=== PATIENT | female | born 1935 | race Caucasian/White ===

== ENCOUNTER 2020-07-03 18:10 | Inpatient (IN) | payer MEDICARE ==
[~2020-07-03 18:10] MED LIST: Iopamidol-370 76% 500 ML 1 ML ONE
[2020-07-03] MEDS ORDERED: Lorazepam 2 MG/ML VIAL ONE (18:51)
[2020-07-03] MEDS ORDERED: Famotidine/PF 20 mg/2ml Vial ONE (18:51)
[2020-07-03] MEDS ORDERED: methylPREDNISolone Sod Succ 40 MG VIAL ONE (18:51)
[2020-07-03] MEDS ORDERED: diphenhydrAMINE 50 MG/ML VIAL ONE (18:51)
[2020-07-03 19:25] LABS: #Eosinphils 0.4 thou/uL (0.0-0.7); #Lymphocytes 0.8 thou/uL (1.20-3.40); #Monocytes 0.3 thou/uL (0.11-0.59); #Neutrophils 11.7 thou/uL (1.40-6.50); %Basophils 0.3 % (0.0-1.0); %Eosinophils 2.7 % (0.0-10.0); %Lymphocytes 5.7 % (21.0-51.0); %Monocytes 2.5 % (0.0-10.0); %Neutrophils 88.7 % (42.0-75.0); Mean Corpuscular HGB CONC 32.2 g/dL (32.0-36.0); Mean Corpuscular Hemoglobin 30.5 pg (27.0-31.0); Mean Corpuscular Volume 94.8 fL (78.0-98.0); Mean Platelet Volume 7.6 fL (7.4-10.4); Platelet Count 219 thou/uL (130-400); RBC Distribution Width 11.4 % (11.5-14.5); Red Blood Cell (RBC) Count 3.59 mill/uL (4.20-5.40); White Blood Cell (WBC) Count 13.2 thou/uL (4.8-10.8)
[2020-07-03 19:31] LABS: PTT 22.2 sec (22.9-36.1); Prothrombin Time 12.7 sec (12.0-14.7)
[2020-07-03 19:33] LABS: INR-International Normal Ratio 0.9
[2020-07-03 19:45] LABS: Acetaminophen Less than 6.0 mcg/mL (10.0-30.0); Alcohol Less than 10 mg/dL (Less than 10); Magnesium 1.7 mg/dL (1.6-2.6); Salicylate Less than 8.0 mg/dL (15.0-30.0)
[2020-07-03 20:22] LABS: Bilirubin Negative (Negative); Blood, Urine Negative (Negative); Clarity Clear (Clear); Glucose, Urine (Dipstick) Normal (Negative); Ketone, Urine Negative (Negative); Leukocyte 250 Leu/uL (Negative); Nitrite Negative (Negative); Protein, Urine (Dipstick) Negative (Neg-Trace); RBC/HPF 0-3 HPF (0-3); Specific Gravity, Urine 1.008 (1.002-1.036); Squamous Epithelial 0-3 HPF (0-3); Urobilinogen Normal mg/dL (Less than 2); WBC/HPF 21-50 HPF (0-3); pH, Urine 7.5 (5.0-9.0)
[2020-07-03 20:23] LABS: Bacteria/HPF 1+ HPF (None Seen)
[2020-07-03 20:27] LABS: Amphetamine Not Detected (NotDetected); Barbiturates Screen Not Detected (NotDetected); Benzodiazepine Screen Not Detected (NotDetected); Cocaine Metabolite Screen Not Detected (NotDetected); Medtox Reader # READER 1; Methadone Not Detected (NotDetected); Methamphetamine Not Detected (NotDetected); Opiate Screen Not Detected (NotDetected); Oxycodone Screen Not Detected (NotDetected); Phencyclidine (PCP) Not Detected (NotDetected); THC/Cannabinoid Screen Not Detected (NotDetected); Tricyclic Screen Not Detected (NotDetected)
[2020-07-03 20:28] LABS: Medtox Control Line Valid? VALID (VALID)
[2020-07-03] MEDS ORDERED: cefTRIAXone\\ROCEPHIN 2 GM VIAL ONE (20:43)
[2020-07-03] MEDS ORDERED: cefTRIAXone\\ROCEPHIN 1 GM VIAL ONE (20:45)
--- NOTE | 2020-07-03 20:45 | CT ---
CT BRAIN 07/03/20 PROVIDED CLINICAL HISTORY: Altered mental status, evidence for stroke. FINDINGS: No comparisons. There is prominence of the lateral ventricular system, out of proportion to the degree of sulcal prom inence. The fourth ventricle is nondilated. There is no evidence for intracranial hemorrhage or mass effect. There is increased density involving the left frontal scalp in the region of the frontal sin us. There is no evidence for skull fracture. IMPRESSION: 1. No evidence for intracranial hemorrhage or mass effect. 2. Dilatation of the lateral ventricles and third ventricle out of proportion to the degree of s ulcal prominence suggesting normal pressure hydrocephalus. 3. Focal area of increased density in the left frontal scalp may reflect scalp contusion. 4. Findings discussed with Dr. Cullen via telephone 6:39 p.m., 07/03/20. Code CR POS: CYNTHIA
--- NOTE | 2020-07-03 20:59 | CT ---
CT ABDOMEN AND PELVIS WITH IV CONTRAST: 07/03/20 PROVIDED CLINICAL HISTORY: Altered mental status and abdominal pain. FINDINGS: The visualized lung bases are free of significant opacity. The liver, spleen, pancreas, kidneys and adrenal glands appear unremarkable. There is no bowel dilatation, inflammatory fat stranding, free fluid, or free air apparent. There is no evidence for appendicitis. The gallbladder is surgically absent. The uterus is not visualized and presumed surgically absent. 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 The osseous structures demonstrate no concerning lytic or blastic lesions. IMPRESSION: No evidence for an acute process. Chronic findings as above. POS: CYNTHIA
--- NOTE | 2020-07-03 22:25 | RAD ---
PORTABLE UPRIGHT FRONTAL CHEST RADIOGRAPH: 07/03/20 COMPARISON: 01/11/07 HISTORY: Altered mental status. FINDINGS: There is no pneumothorax, pleural fluid, focal consolidation, or alveolar edema. Heart and mediastina l contours appear unremarkable. Nonspecific increased interstitial density noted in the perihilar reg ions. IMPRESSION: Perihilar interstitial prominence with no focal consolidation or alveolar edema. POS: KRISTA
[2020-07-03 23:06] LABS: ALT (SGPT) 16 U/L (8-55); AST (SGOT) 24 U/L (5-34); Albumin 3.8 g/dL (3.4-4.8); Alkaline Phosphatase 84 U/L (40-110); Anion Gap 18 mmol/L (10-20); BUN (Urea Nitrogen) 25 mg/dL (9.8-20.1); Bilirubin, Total 0.3 mg/dL (0.2-1.2); CK (CPK) 52 U/L (29-168); Calc. Creatinine Clearance 0 mL/min (70-130); Calcium 8.9 mg/dL (7.8-10.44); Carbon Dioxide 19 mmol/L (23-31); Chloride 108 mmol/L (98-107); Globulin 3.3 g/dL (2.4-3.5); Glucose 99 mg/dL (83-110); Lipase 77 U/L (8-78); Potassium 4.6 mmol/L (3.5-5.1); Protein, Total 7.1 g/dL (6.0-8.3); Sodium 140 mmol/L (136-145)
[2020-07-04] MEDS ORDERED: Acetaminophen 650 MG Suppository PR PRN (00:56)
[2020-07-04] MEDS ORDERED: Ondansetron PF 4 MG/2 ML Vial IVP PRN (00:56)
[2020-07-04] MEDS ORDERED: Calcium Carbonate 500 MG ChewTAB PO PRN (00:56)
[2020-07-04] MEDS ORDERED: Ondansetron ODT 4 MG TAB PO PRN (00:56)
--- NOTE | 2020-07-04 01:00 | PDOC.HHP ---
Hospitalist HPI - History of Present Illness altered mental state History of Present Illness: Case of an 84y/o female with a pmhx of atrial fibrillaton, hld, hx of dilated intracranial ventricles since and htn who comes to hospital due to altered mental state. apparently patient was on her usual state sof health until today when approximate this afternoon she began to have some global weakness and began to seem somewhat agitated according to her daughter. The patient was unable to get out of her chair and EMS was called. When the patient arrived to the emergency department here she is moving all extremities but appeared quite agitated and disoriented. patient was also febrile. She has no complaints. during my evaluation patient seemed to be back to her base and had no recollection of what had happened. Hospitalist ROS - Review of Systems All other systems reviewed; all pertinent +/- noted in HPI/Subj Hospitalist History - Past Surgical History Past Surgical History: reports: Cholecystectomy, Hysterectomy - Family History Family History: reports: no pertinent history - Social History Smoking Status: Never smoker Alcohol: reports: None Drugs: reports: none Living Situation: With Family - Exam General Appearance: NAD, awake alert Eye: PERRL, anicteric sclera ENT: normocephalic atraumatic, no oropharyngeal lesions Neck: supple, symmetric, no JVD Heart: RRR, no murmur, no gallops Respiratory: CTAB, no wheezes, no rales Gastrointestinal: soft, non-tender, non-distended Extremities: no cyanosis, no clubbing, no edema Skin: normal turgor, no lesions, no rashes Neurological: cranial nerve grossly intact, normal sensation to touch, no weakness Musculoskeletal: normal tone, normal strength, no muscle wasting Psychiatric: normal affect, normal behavior, A&O x 3 Hospitalist Results - Labs Result Diagrams: 07/03/20 19:13 07/03/20 19:13 Lab results: WBC 13.2 thou/uL (4.8-10.8) H 07/03/20 19:13 Hgb 11.0 g/dL (12.0-16.0) L 07/03/20 19:13 Hct 34.1 % (36.0-47.0) L 07/03/20 19:13 MCV 94.8 fL (78.0-98.0) 07/03/20 19:13 Plt Count 219 thou/uL (130-400) 07/03/20 19:13 Neutrophils % 88.7 % (42.0-75.0) H 07/03/20 19:13 Sodium 140 mmol/L (136-145) 07/03/20 19:13 Potassium 4.6 mmol/L (3.5-5.1) 07/03/20 19:13 Chloride 108 mmol/L (98-107) H 07/03/20 19:13 Carbon Dioxide 19 mmol/L (23-31) L 07/03/20 19:13 BUN 25 mg/dL (9.8-20.1) H 07/03/20 19:13 Creatinine 1.72 mg/dL (0.6-1.1) H 07/03/20 19:13 Glucose 99 mg/dL (83-110) 07/03/20 19:13 Lactic Acid 1.7 mmol/L (0.5-2.2) 07/03/20 19:13 Calcium 8.9 mg/dL (7.8-10.44) 07/03/20 19:13 Total Bilirubin 0.3 mg/dL (0.2-1.2) 07/03/20 19:13 AST 24 U/L (5-34) 07/03/20 19:13 ALT 16 U/L (8-55) 07/03/20 19:13 Alkaline Phosphatase 84 U/L (40-110) 07/03/20 19:13 Creatine Kinase 52 U/L (29-168) 07/03/20 19:13 Troponin I 0.017 ng/mL (< 0.028) 07/03/20 19:13 Serum Total Protein 7.1 g/dL (6.0-8.3) 07/03/20 19:13 Albumin 3.8 g/dL (3.4-4.8) 07/03/20 19:13 Lipase 77 U/L (8-78) 07/03/20 19:13 Urine Ketones Negative mg/dL (Negative) 07/03/20 Unknown Urine Blood Negative (Negative) 07/03/20 Unknown Urine Nitrite Negative (Negative) 07/03/20 Unknown Ur Leukocyte Esterase 250 Felix/uL (Negative) A 07/03/20 Unknown Urine RBC 0-3 HPF (0-3) 07/03/20 Unknown Urine WBC 21-50 HPF (0-3) A 07/03/20 Unknown Ur Squamous Epith Cells 0-3 HPF (0-3) 07/03/20 Unknown Urine Bacteria 1+ HPF (None Seen) A 07/03/20 Unknown Hospitalist H&P A/P - Problem (1) Sepsis Code(s): A41.9 - SEPSIS, UNSPECIFIED ORGANISM Status: Acute (2) UTI (urinary tract infection) Status: Acute (3) JESS (acute kidney injury) Code(s): N17.9 - ACUTE KIDNEY FAILURE, UNSPECIFIED Status: Acute (4) Atrial fibrillation Code(s): I48.91 - UNSPECIFIED ATRIAL FIBRILLATION Status: Acute (5) HTN (hypertension) Code(s): I10 - ESSENTIAL (PRIMARY) HYPERTENSION Status: Acute (6) HLD (hyperlipidemia) Code(s): E78.5 - HYPERLIPIDEMIA, UNSPECIFIED Status: Acute - Plan Plan: Case of an 84y/o female with the stated pmhx who present with sepsis secondary to uti sepsis secondary to uti - leukocytosis + fever + altered mental state + u/a consistent with uti - sepsis bundles started ivfs given, cultures taken and pt started on broad spectrum abx - will start rocephin - margarita [place] - continue ivfs - f/u cultures jess - unclear base, creatinine at 1.7 - will start ivfs - f/u renal function and u/o atrial fibrillation / htn / hld - continue home meds when available
[2020-07-04] MEDS ORDERED: Sodium Chloride 0.9% 1,000 ML IV SCH (01:30)
[2020-07-04] MEDS ORDERED: cefTRIAXone\\ROCEPHIN 1 GM in Sodium Chloride 0.9% 100 ML IVPB SCH (01:30)
[2020-07-04 05:38] LABS: ALT (SGPT) 14 U/L (8-55); AST (SGOT) 22 U/L (5-34); Albumin 3.5 g/dL (3.4-4.8); Alkaline Phosphatase 79 U/L (40-110); Anion Gap 15 mmol/L (10-20); BUN (Urea Nitrogen) 23 mg/dL (9.8-20.1); Bilirubin, Total 0.2 mg/dL (0.2-1.2); Calc. Creatinine Clearance 0 mL/min (70-130); Calcium 8.7 mg/dL (7.8-10.44); Carbon Dioxide 21 mmol/L (23-31); Chloride 110 mmol/L (98-107); Globulin 3.2 g/dL (2.4-3.5); Glucose 142 mg/dL (83-110); Potassium 4.5 mmol/L (3.5-5.1); Protein, Total 6.7 g/dL (6.0-8.3); Sodium 141 mmol/L (136-145)
[2020-07-04 05:41] LABS: Hemoglobin 10.2 g/dL (12.0-16.0); Mean Corpuscular HGB CONC 32.8 g/dL (32.0-36.0); Mean Corpuscular Hemoglobin 31.4 pg (27.0-31.0); Mean Corpuscular Volume 95.8 fL (78.0-98.0); Platelet Count 203 thou/uL (130-400); RBC Distribution Width 11.4 % (11.5-14.5); Red Blood Cell (RBC) Count 3.24 mill/uL (4.20-5.40); White Blood Cell (WBC) Count 15.4 thou/uL (4.8-10.8)
[2020-07-04 05:42] LABS: Band 2 % (5-11); Hypochromia SLIGHT = 6-15 cells (100X) (0-5/hpf); Lymphocytes 5 % (21-51); MDiff Complete? YES; Neutrophil 93 % (42-75); Platelet Morphology Comment Appears Adequate
[2020-07-04 05:44] VITALS: BMI 28.8
[2020-07-04] MEDS ORDERED: FLU VACC QS2020-21(65YR UP)/PF 240 MCG/0.7 ML SYRINGE IM ONE (09:15)
--- NOTE | 2020-07-04 09:25 | PDOC.HOSPP ---
- Subjective Encounter Date: 07/04/20 Subjective: Patient was seen and examined in bed. She appears generally well. She denies any cough chest pain or shortness of breath. No significant events overnight - Objective Vital Signs & Weight: Vital Signs (12 hours) Temp Pulse Resp BP Pulse Ox 07/04/20 08:18 97.5 F L 61 16 134/62 94 L 07/04/20 03:55 97.7 F 70 16 116/79 96 07/04/20 00:55 98 07/03/20 23:55 98.0 F 71 14 147/77 H 95 Weight Weight 167 lb 9.6 oz Result Diagrams: 07/04/20 05:08 07/04/20 05:08 EKG Reviewed by me: Yes (Normal sinus rhythm with occasional PVCs and pauses on telemetry.) Hospitalist ROS - Review of Systems All other systems reviewed; all pertinent +/- noted in HPI/Subj - Medication Medications: Active Medications Generic Name Dose Route Start Last Admin Trade Name Freq PRN Reason Stop Dose Admin Sodium Chloride 1,000 mls @ 70 mls/hr 07/04/20 01:30 07/04/20 05:45 Normal Saline 0.9% IV 1,000 mls .[id number] NACHO Administration - Exam General Appearance: awake alert Eye: PERRL, anicteric sclera ENT: normocephalic atraumatic, no oropharyngeal lesions Heart: RRR, no murmur, no gallops, no rubs Respiratory: CTAB, no wheezes, no rales, no ronchi Gastrointestinal: soft, non-tender, non-distended, normal bowel sounds Extremities: no cyanosis, no clubbing, no edema Neurological: cranial nerve grossly intact, no focal deficits Musculoskeletal: normal tone Psychiatric: normal affect, normal behavior, A&O x 3 Hosp A/P - Plan This is an 84-year-old female patient with a history of atrial fibrillation, hypertension hyperlipidemia admitted on account of sepsis with altered mental status. He appears to be back to baseline however having persistent leukocytosis and renal function is improving. Sepsis Received initial treatment currently on Rocephin for UTI Still having mildly worsening leukocytosis with increased from 13.2-15.4 She is however clinically improved We will continue treatment for 1 more day and wait for cultures. UTI Continue Rocephin for now Follow-up on culture results. JESS Baseline unclear however no improvement in creatinine. We will increase fluids from 7200 mils per hour Monitor BMP. Check FENa, No hydronephrosis or nephrolithiasis noted on CT abdomen Nephrology consult if deteriorates any further. Next Hypothyroidism TSH within normal range Continue levothyroxine Atrial fibrillation Not on anticoagulants No A. fib on telemetry Continue monitor.
[2020-07-04] MEDS: Sodium Chloride 0.9% 1,000 ML IV SCH ×2 (09:53→21:03)
--- NOTE | 2020-07-04 11:01 | PQF ---
CLINICAL DOCUMENTATION CLARIFICATION FORM: Dear ARMANI Salmeron Date: 07-04-20 Please exercise your independent, professional judgment in responding to the clarification form. Clinical indicators are provided on the bottom of this form for your review. Please check appropriate box(es): [ ] Encephalopathy: Type: [ x ] Acute [ ] Subacute [ ] Chronic Etiology: [ ] Metabolic [ ] Toxic [ ] Hypoxic [ x ] Septic [ ] In the setting of underlying dementia [ ] Other (please specify) [ ] Transient Alteration of Awareness [ ] Other diagnosis [ ] Unable to determine In addition, please specify: Present on Admission (POA): [ x ] Yes [ ] No [ ] Unable to determine For continuity of documentation, please document condition throughout progress notes and discharge summary. Thank You. To be completed by CDI/Coding staff for physician review: CLINICAL INDICATORS - SIGNS / SYMPTOMS / LABS / RESULTS AND LOCATION IN EMR: ER NOTES: 07-03-20: AMS, SOMEWHAT AGITATED, UNABLE TO GET OUT OF CHAIR ER DX: AMS, NORMAL PRESSURE HYDROCEPHALUS, UTI H&P: 07-03-20: ALTERED MENTAL STATUS, AGITATED AND DISORIENTED, PLAN: SEPSIS, UTI, JESS, A FIB, HTN, HLD RISK FACTORS / RESULTS AND LOCATION IN EMR: H&P: 07-03-20: ALTERED MENTAL STATUS, AGITATED AND DISORIENTED, PLAN: SEPSIS, UTI, JESS, A FIB, HTN, HLD TREATMENTS / RESULTS AND LOCATION IN EMR: H&P: 07-03-20: SEPSIS BUNDLES STARTED IVFS GIVEN, CULTURES TAKEN AND PT STARTED ON BROAD SPECTRUM ABX, START ROCEPHIN, CONTINUE IVFS, F/U CULTURE CDS Signature: Yuliya Maria Phone #: [phone] Date/Time: 07-04-20 This is a permanent part of the Medical Record [facility]
[2020-07-04] MEDS ORDERED: cefTRIAXone\\ROCEPHIN 2 GM in Sodium Chloride 0.9% 100 ML IVPB SCH (22:00)
[2020-07-05 05:41] LABS: Hemoglobin 11.1 g/dL (12.0-16.0); Mean Corpuscular HGB CONC 31.4 g/dL (32.0-36.0); Mean Corpuscular Hemoglobin 30.2 pg (27.0-31.0); Mean Corpuscular Volume 96.3 fL (78.0-98.0); Mean Platelet Volume 7.9 fL (7.4-10.4); Platelet Count 227 thou/uL (130-400); RBC Distribution Width 11.8 % (11.5-14.5); Red Blood Cell (RBC) Count 3.68 mill/uL (4.20-5.40); White Blood Cell (WBC) Count 21.6 thou/uL (4.8-10.8)
[2020-07-05 05:43] LABS: Anion Gap 16 mmol/L (10-20); BUN (Urea Nitrogen) 23 mg/dL (9.8-20.1); Calc. Creatinine Clearance 31 mL/min (70-130); Calcium 8.8 mg/dL (7.8-10.44); Carbon Dioxide 18 mmol/L (23-31); Chloride 112 mmol/L (98-107); Glucose 116 mg/dL (83-110); Potassium 3.8 mmol/L (3.5-5.1); Sodium 142 mmol/L (136-145)
[2020-07-05 06:42] LABS: Band 10 % (5-11); Eosinophils 1 % (0-10); Lymphocytes 10 % (21-51); MDiff Complete? YES; Monocytes 9 % (0-10); Neutrophil 70 % (42-75)
[2020-07-05] MEDS ORDERED: Doxycycline 100 MG in Syringe 0 ML IVPB SCH (09:00)
[2020-07-05] MEDS ORDERED: Non-Formulary Item 1 EACH (Levothyroxine Sodium [Levothyroxine] 88 MCG Capsule) PO SCH (09:00)
--- NOTE | 2020-07-05 09:07 | RAD ---
RADIOGRAPH CHEST 1 VIEW: DATE: 07/05/2020 TIME: 5:18 AM HISTORY: 84-year-old female with wheezing and dyspnea COMPARISON: 07/03/2020 FINDINGS: There is a new finding of infrahilar right lower lobe infiltrate. Interstitial markings are diffusely prominent. No cardiomegaly or pneumothorax. IMPRESSION: New right lower lobe infiltrate
[2020-07-05] MEDS: Rosuvastatin 10 MG TAB PO SCH (09:28)
[2020-07-05] MEDS: Escitalopram Oxalate 20 mg Tablet PO SCH (09:28)
[2020-07-05] MEDS: Aspirin 81 mg Enteric Coated Tablet PO SCH (09:28)
[2020-07-05] MEDS: Sodium Chloride 0.9% 1,000 ML IV SCH ×3 (09:29→21:31)
[2020-07-05] MEDS: Piperacillin/Tazobactam 4.5 GM in Sodium Chloride 0.9% 100 ML IVPB SCH ×2 (09:29→15:55)
[2020-07-05] MEDS: Acetaminophen 325 MG TAB PO PRN ×2 (16:10→22:57)
--- NOTE | 2020-07-05 16:16 | PDOC.HOSPP ---
- Subjective Encounter Date: 07/05/20 Subjective: Patient was seen and examined in bed. Overnight she had ongoing diarrhea Had a cough and wheezing requiring breathing treatments overnight. She has been slightly confused. Her daughter was in the room with her - Objective Vital Signs & Weight: Vital Signs (12 hours) Temp Pulse Resp BP Pulse Ox 07/05/20 16:00 97.5 F L 79 18 161/77 H 94 L 07/05/20 13:00 98.3 F 67 14 148/72 H 93 L 07/05/20 08:10 99.2 F 82 16 164/94 H 95 07/05/20 05:09 166/63 H Weight Weight 167 lb 9.6 oz I&O: 07/04/20 07/05/20 07/06/20 06:59 06:59 06:59 Intake Total 300 240 Balance 300 240 Result Diagrams: 07/05/20 05:01 07/05/20 05:01 EKG Reviewed by me: Yes (Normal sinus rhythm on telemetry) Hospitalist ROS - Review of Systems All other systems reviewed; all pertinent +/- noted in HPI/Subj - Medication Medications: Active Medications Generic Name Dose Route Start Last Admin Trade Name Freq PRN Reason Stop Dose Admin Acetaminophen 650 mg 07/04/20 00:56 07/05/20 16:10 Acetaminophen 325 Mg Tab PO 650 mg Q4H PRN Administration Headache/Fever/Mild Pain (1-3) Aspirin 81 mg 07/05/20 09:00 07/05/20 09:28 Aspirin 81 Mg Enteric Coated Tablet PO 81 mg DAILY NACHO Administration Escitalopram Oxalate 20 mg 07/05/20 09:00 07/05/20 09:28 Escitalopram Oxalate 20 Mg Tablet PO 20 mg DAILY NACHO Administration Ceftriaxone Sodium 2 gm/ 100 mls @ 200 mls/hr 07/04/20 22:00 07/04/20 21:40 Sodium Chloride IVPB 100 mls 2200 NACHO Administration Sodium Chloride 1,000 mls @ 100 mls/hr 07/04/20 09:30 07/05/20 09:29 Normal Saline 0.9% IV Not Given .Q10H NACHO Piperacillin Sod/Tazobactam 100 mls @ 200 mls/hr 07/05/20 08:00 07/05/20 15:55 Sod 4.5 gm/ Sodium Chloride IVPB 100 mls Q8H NACHO Administration Doxycycline Hyclate 100 mg/ 100 mls @ 100 mls/hr 07/05/20 09:00 07/05/20 09:29 Sodium Chloride IVPB 100 mls Q12HR NACHO Administration Metoprolol Succinate 25 mg 07/05/20 09:00 07/05/20 09:28 Metoprolol Succinate Xl 25 Mg Tab PO 25 mg DAILY NACHO Administration Ondansetron HCl 4 mg 07/04/20 00:56 07/05/20 04:24 Ondansetron Pf 4 Mg/2 Ml Vial IVP 4 mg Q6H PRN Administration Nausea/Vomiting Rosuvastatin Calcium 10 mg 07/05/20 09:00 07/05/20 09:28 Rosuvastatin 10 Mg Tab PO 10 mg DAILY NACHO Administration Sodium Chloride 10 ml 07/04/20 21:00 07/05/20 09:30 Flush - Normal Saline 10 Ml Syringe IVF 10 ml Q12HR NACHO Administration - Exam General Appearance: awake alert Eye: PERRL, anicteric sclera ENT: normocephalic atraumatic Heart: RRR, no murmur, no gallops, no rubs Respiratory: CTAB, wheezes Gastrointestinal: soft, non-tender, non-distended, normal bowel sounds Extremities: no cyanosis, no clubbing, no edema Neurological: cranial nerve grossly intact, no focal deficits Hosp A/P - Plan This is an 84-year-old female patient with a history of atrial fibrillation, hypertension hyperlipidemia admitted on account of sepsis with altered mental status. She had worsening respiratory distress overnight requiring breathing treatments and chest x-ray shows new right-sided infiltrates. We will expand her antibiotics to Zosyn and doxycycline and assess for aspiration. Sepsis Initially treated for UTI however this is likely from pneumonia Leukocytosis is worsening We will expand antibioticsdoxycycline/Zosyn Follow-up on blood cultures Pneumonia Possibly aspiration Cover him doxycycline/Zosyn Follow-up on cultures UTI Initially on Rocephin Continue on antibiotics as above JESS/CKD Likely her baseline Slight improvement in creatinine from 1.73-1.60 No hydronephrosis so nephrolithiasis on CT Monitor BMP. Check FENa, No hydronephrosis or nephrolithiasis noted on CT abdomen Nephrology consult if deteriorates any further. Diarrhea Check C. difficile IV fluids. Loperamide if C. difficile negative Hypothyroidism TSH within normal range Continue levothyroxine Atrial fibrillation Not on anticoagulants No A. fib on telemetry Continue monitor. VT prophylaxisLovenox CODE STATUSfull code
[2020-07-05] MEDS ORDERED: Non-Formulary Item 1 EACH (Quetiapine Fumarate [Seroquel] 50 MG Tablet) PO SCH (21:00)
[2020-07-05] MEDS: Donepezil HCl 10 MG TAB PO SCH (21:32)
[2020-07-06] MEDS: Piperacillin/Tazobactam 4.5 GM in Sodium Chloride 0.9% 100 ML IVPB SCH ×3 (01:47→16:52)
[2020-07-06] MEDS: Sodium Chloride 0.9% 1,000 ML IV SCH ×2 (05:31→15:24)
[2020-07-06] MEDS: Levothyroxine Sodium 88 MCG TAB PO SCH (06:12)
[2020-07-06 08:57] LABS: #Eosinphils 0.3 thou/uL (0.0-0.7); #Lymphocytes 1.7 thou/uL (1.20-3.40); #Monocytes 0.9 thou/uL (0.11-0.59); #Neutrophils 10.5 thou/uL (1.40-6.50); %Basophils 0.4 % (0.0-1.0); %Eosinophils 2.3 % (0.0-10.0); %Lymphocytes 12.4 % (21.0-51.0); %Monocytes 6.5 % (0.0-10.0); %Neutrophils 78.4 % (42.0-75.0); Hemoglobin 10.3 g/dL (12.0-16.0); Mean Corpuscular HGB CONC 32.1 g/dL (32.0-36.0); Mean Corpuscular Hemoglobin 31.2 pg (27.0-31.0); Mean Corpuscular Volume 97.1 fL (78.0-98.0); Mean Platelet Volume 7.8 fL (7.4-10.4); Platelet Count 182 thou/uL (130-400); RBC Distribution Width 11.8 % (11.5-14.5); Red Blood Cell (RBC) Count 3.31 mill/uL (4.20-5.40); White Blood Cell (WBC) Count 13.4 thou/uL (4.8-10.8)
[2020-07-06 09:10] LABS: Anion Gap 14 mmol/L (10-20); BUN (Urea Nitrogen) 18 mg/dL (9.8-20.1); Calc. Creatinine Clearance 31 mL/min (70-130); Calcium 8.5 mg/dL (7.8-10.44); Carbon Dioxide 20 mmol/L (23-31); Chloride 113 mmol/L (98-107); Glucose 93 mg/dL (83-110); Potassium 3.6 mmol/L (3.5-5.1); Sodium 143 mmol/L (136-145)
[2020-07-06] MEDS: Escitalopram Oxalate 20 mg Tablet PO SCH (09:16)
[2020-07-06] MEDS: Aspirin 81 mg Enteric Coated Tablet PO SCH (09:16)
[2020-07-06] MEDS: Rosuvastatin 10 MG TAB PO SCH (09:17)
--- NOTE | 2020-07-06 16:57 | PDOC.HOSPP ---
- Subjective Encounter Date: 07/06/20 Encounter Time: 15:00 Subjective: F/u: pneumonia, encephalopathy Daughter states patient originally had altered mental status. She had global weakness and was agitated with a fever of 101.8. She had not slept all night and so had a bad day two nights ago but today is better. Her breathing has improved. She ambulated with physical therapy with a walker down the pedroza. Her oxygen saturation remained 94% on 2L of oxygen. Heart rate 90's to 114. The patient was getting therapy as an outpatient prior to coming to the hospital and did not think it helped that much so leaning towards going home when she is ready to be discharged Dysphagia -She has a mild cough. The patient is requesting water, however speech had recommended a thickened diet a few days ago. Discussed with daughter that she can continue diet with risks of aspiration - Objective Vital Signs & Weight: Vital Signs (12 hours) Temp Pulse Pulse Pulse Pulse Resp BP 07/06/20 14:55 97 97 107 H 138/74 07/06/20 14:34 64 20 07/06/20 12:40 91 07/06/20 12:18 98.7 F 118 H 20 07/06/20 09:18 66 22 H 07/06/20 08:00 BP BP Pulse Ox Pulse Ox Pulse Ox Pulse Ox 07/06/20 14:55 172/78 H 94 L 98 97 07/06/20 14:34 92 L 07/06/20 12:40 07/06/20 12:18 122/68 94 L 07/06/20 09:18 93 L 07/06/20 08:00 93 L Weight Weight 167 lb 9.6 oz I&O: 07/05/20 07/06/20 07/07/20 06:59 06:59 06:59 Intake Total 300 680 Balance 300 680 Result Diagrams: 07/06/20 08:48 07/06/20 08:48 Hospitalist ROS - Review of Systems Constitutional: denies: fever, chills - Medication Medications: Active Medications Generic Name Dose Route Start Last Admin Trade Name Freq PRN Reason Stop Dose Admin Acetaminophen 650 mg 07/04/20 00:56 07/05/20 22:57 Acetaminophen 325 Mg Tab PO 650 mg Q4H PRN Administration Headache/Fever/Mild Pain (1-3) Albuterol/Ipratropium 3 ml 07/05/20 16:17 07/06/20 09:18 Ipratropium/Albuterol Sulfate 3 Ml Neb NEB 3 ml [id number] PRN Administration SOB &/or Wheezing Albuterol/Ipratropium 3 ml 07/05/20 18:30 07/06/20 14:34 Ipratropium/Albuterol Sulfate 3 Ml Neb NEB 3 ml [id number] NACHO Administration Aspirin 81 mg 07/05/20 09:00 07/06/20 09:16 Aspirin 81 Mg Enteric Coated Tablet PO 81 mg DAILY NACHO Administration Donepezil HCl 10 mg 07/05/20 21:00 07/05/20 21:32 Donepezil Hcl 10 Mg Tab PO 10 mg HS NACHO Administration Escitalopram Oxalate 20 mg 07/05/20 09:00 07/06/20 09:16 Escitalopram Oxalate 20 Mg Tablet PO 20 mg DAILY NACHO Administration Sodium Chloride 1,000 mls @ 100 mls/hr 07/04/20 09:30 07/06/20 15:24 Normal Saline 0.9% IV 1,000 mls .Q10H NACHO Administration Piperacillin Sod/Tazobactam 100 mls @ 200 mls/hr 07/05/20 08:00 07/06/20 16:52 Sod 4.5 gm/ Sodium Chloride IVPB 100 mls Q8H NACHO Administration Doxycycline Hyclate 100 mg/ 100 mls @ 100 mls/hr 07/05/20 09:00 07/06/20 10:06 Sodium Chloride IVPB 100 mls Q12HR NACHO Administration Levothyroxine Sodium 88 mcg 07/06/20 06:00 07/06/20 06:12 Levothyroxine Sodium 88 Mcg Tab PO 88 mcg 0600 NACHO Administration Metoprolol Succinate 25 mg 07/05/20 09:00 07/06/20 09:17 Metoprolol Succinate Xl 25 Mg Tab PO 25 mg DAILY NACHO Administration Ondansetron HCl 4 mg 07/04/20 00:56 07/05/20 04:24 Ondansetron Pf 4 Mg/2 Ml Vial IVP 4 mg Q6H PRN Administration Nausea/Vomiting Quetiapine Fumarate 50 mg 07/05/20 21:00 07/05/20 21:32 Quetiapine Fumarate 25 Mg Tab PO 50 mg HS NACHO Administration Rosuvastatin Calcium 10 mg 07/05/20 09:00 07/06/20 09:17 Rosuvastatin 10 Mg Tab PO 10 mg DAILY NACHO Administration Sodium Chloride 10 ml 07/04/20 21:00 07/06/20 09:19 Flush - Normal Saline 10 Ml Syringe IVF Not Given Q12HR NACHO - Exam General Appearance: NAD, awake alert Eye: PERRL, anicteric sclera ENT: normocephalic atraumatic, no oropharyngeal lesions Neck: no JVD Heart: RRR, no murmur, no gallops, no rubs Respiratory - other findings: right lower lobe crackles Gastrointestinal: soft, non-tender, non-distended Extremities: no cyanosis, no clubbing, no edema Skin: normal turgor, no lesions, no rashes Hosp A/P - Plan CT brain: dilation of lateral ventricles and third ventricle suggesting NPH. Left scalp contusion Chest x ray: perihilar interstitial prominence CT abdomen: no acute process Chest X ray 07/05: new right lower lobe infiltrate This is an 84 year old female who presented with altered mental status and daughter was concerned about her having a stroke. Acute hypoxic respiratory failure secondary to sepsis from Pneumonia - presented with fever. She had tachycardia and leukocytosis and new right lower lobe infiltrate - continue zosyn and doxycycline day 2. WBC has come down to 13. Consider switching to oral tomorrow - continue to wean oxygen to maintain sats > 92% Dysphagia - continue pureed diet as tolerated Acute encephalopathy - likely secondary to pneumonia - seems to be oriented Possible NPH - will place neurology consult in am . Is needing a wakler Dementia - continue aricept Hypertension - continue metoprolol. Will stop IV fluids Hypothyroidism - continue levothyroxine
[2020-07-06] MEDS: Donepezil HCl 10 MG TAB PO SCH (20:22)
[2020-07-07] MEDS: Piperacillin/Tazobactam 4.5 GM in Sodium Chloride 0.9% 100 ML IVPB SCH ×4 (00:10→17:48)
[2020-07-07] MEDS: Levothyroxine Sodium 88 MCG TAB PO SCH (05:36)
[2020-07-07 06:11] LABS: Hemoglobin 9.2 g/dL (12.0-16.0); Mean Corpuscular Hemoglobin 30.6 pg (27.0-31.0); Mean Corpuscular Volume 95.7 fL (78.0-98.0); Mean Platelet Volume 8.2 fL (7.4-10.4); Platelet Count 181 thou/uL (130-400); RBC Distribution Width 11.8 % (11.5-14.5); White Blood Cell (WBC) Count 11.4 thou/uL (4.8-10.8)
[2020-07-07] MEDS ORDERED: Metoprolol Tartrate 25 MG TAB PO SCH (06:15)
[2020-07-07 06:31] LABS: Anion Gap 14 mmol/L (10-20); BUN (Urea Nitrogen) 14 mg/dL (9.8-20.1); Calc. Creatinine Clearance 34 mL/min (70-130); Calcium 8.3 mg/dL (7.8-10.44); Carbon Dioxide 18 mmol/L (23-31); Chloride 113 mmol/L (98-107); Glucose 100 mg/dL (83-110); Potassium 3.3 mmol/L (3.5-5.1); Sodium 142 mmol/L (136-145)
[2020-07-07] MEDS: Rosuvastatin 10 MG TAB PO SCH (09:20)
[2020-07-07] MEDS: Aspirin 81 mg Enteric Coated Tablet PO SCH (09:20)
[2020-07-07] MEDS: Escitalopram Oxalate 20 mg Tablet PO SCH (09:20)
[2020-07-07] MEDS ORDERED: Potassium Chloride 20 MEQ TAB PO SCH (10:15)
--- NOTE | 2020-07-07 12:57 | CON ---
NEUROLOGY CONSULTATION DATE OF CONSULTATION: 07/07/2020 REASON FOR CONSULTATION: Altered mental status/abnormal head CT, rule out NPH. HISTORY OF PRESENT ILLNESS: Ms. Rodriguez is an 84-year-old female with medical history significant for atrial fibrillation, hyperlipidemia, history of enlarged ventricles since 1989, been followed by Dr. Ceron, whose patient's neurologist, and hypertension, presented to the emergency room with altered mental status on 07/03/2020. Per daughter, she was in her usual state of health and in the afternoon when she saw her, she has a generalized weakness and was confused and agitated and disoriented. The patient was also febrile, so she decided to bring her to the emergency room for further evaluation. The daughter denies any focal weakness, focal paresthesias, nausea, vomiting, diarrhea, chest pain, abdominal pain, blurred vision, double vision, or dizziness at that time. REVIEW OF SYSTEMS: Per daughter, all systems reviewed and were negative except the pertinent positives and negatives mentioned in the HPI. PAST MEDICAL HISTORY: Atrial fibrillation, hyperlipidemia, enlarged ventricles on head CT since 1989, hypertension. PAST SURGICAL HISTORY: Cholecystectomy, hysterectomy. FAMILY HISTORY: No significant family history of stroke. SOCIAL HISTORY: The patient lives with her daughter. Denies smoking, alcohol, illegal drug use. Vital Signs & Weight: Vital Signs (12 hours) Temp Pulse Pulse Pulse Pulse Resp BP 07/06/20 14:55 97 97 107 H 138/74 07/06/20 14:34 64 20 07/06/20 12:40 91 07/06/20 12:18 98.7 F 118 H 20 07/06/20 09:18 66 22 H 07/07/20 08:00 130/75 BP BP Pulse Ox Pulse Ox Pulse Ox Pulse Ox 07/06/20 14:55 172/78 H 94 L 98 97 07/06/20 14:34 92 L 07/06/20 12:40 07/06/20 12:18 122/68 94 L 07/06/20 09:18 93 L 07/06/20 08:00 93 L Weight Weight 167 lb 9.6 oz I&O: 07/05/20 07/06/20 07/07/20 06:59 06:59 06:59 Intake Total 300 680 Balance 300 680 Active Medications Generic Name Dose Route Start Last Admin Trade Name Freq PRN Reason Stop Dose Admin Acetaminophen 650 mg 07/04/20 00:56 07/05/20 22:57 Acetaminophen 325 Mg Tab PO 650 mg Q4H PRN Administration Headache/Fever/Mild Pain (1-3) Albuterol/Ipratropium 3 ml 07/05/20 16:17 07/06/20 09:18 Ipratropium/Albuterol Sulfate 3 Ml Neb NEB 3 ml [id number] PRN Administration SOB &/or Wheezing Albuterol/Ipratropium 3 ml 07/05/20 18:30 07/06/20 14:34 Ipratropium/Albuterol Sulfate 3 Ml Neb NEB 3 ml [id number] NACHO Administration Aspirin 81 mg 07/05/20 09:00 07/06/20 09:16 Aspirin 81 Mg Enteric Coated Tablet PO 81 mg DAILY NACHO Administration Donepezil HCl 10 mg 07/05/20 21:00 07/05/20 21:32 Donepezil Hcl 10 Mg Tab PO 10 mg HS NACHO Administration Escitalopram Oxalate 20 mg 07/05/20 09:00 07/06/20 09:16 Escitalopram Oxalate 20 Mg Tablet PO 20 mg DAILY NACHO Administration Sodium Chloride 1,000 mls @ 100 mls/hr 07/04/20 09:30 07/06/20 15:24 Normal Saline 0.9% IV 1,000 mls .Q10H NACHO Administration Piperacillin Sod/Tazobactam 100 mls @ 200 mls/hr 07/05/20 08:00 07/06/20 16:52 Sod 4.5 gm/ Sodium Chloride IVPB 100 mls Q8H NACHO Administration Doxycycline Hyclate 100 mg/ 100 mls @ 100 mls/hr 07/05/20 09:00 07/06/20 10:06 Sodium Chloride IVPB 100 mls Q12HR NACHO Administration Levothyroxine Sodium 88 mcg 07/06/20 06:00 07/06/20 06:12 Levothyroxine Sodium 88 Mcg Tab PO 88 mcg 0600 NACHO Administration Metoprolol Succinate 25 mg 07/05/20 09:00 07/06/20 09:17 Metoprolol Succinate Xl 25 Mg Tab PO 25 mg DAILY NACHO Administration Ondansetron HCl 4 mg 07/04/20 00:56 07/05/20 04:24 Ondansetron Pf 4 Mg/2 Ml Vial IVP 4 mg Q6H PRN Administration Nausea/Vomiting Quetiapine Fumarate 50 mg 07/05/20 21:00 07/05/20 21:32 Quetiapine Fumarate 25 Mg Tab PO 50 mg HS NACHO Administration Rosuvastatin Calcium 10 mg 07/05/20 09:00 07/06/20 09:17 Rosuvastatin 10 Mg Tab PO 10 mg DAILY NACHO Administration Sodium Chloride 10 ml 07/04/20 21:00 07/06/20 09:19 Flush - Normal Saline 10 Ml Syringe IVF Not Given Q12HR NACHO PHYSICAL EXAMINATION: General Appearance: NAD, awake alert Eye: PERRL, anicteric sclera ENT: normocephalic atraumatic, no oropharyngeal lesions Neck: supple, symmetric, no JVD Heart: RRR, no murmur, no gallops Respiratory: CTAB, no wheezes, no rales Gastrointestinal: soft, non-tender, non-distended Extremities: no cyanosis, no clubbing, no edema Skin: normal turgor, no lesions, no rashes Neurological: Mental status, the patient is alert and oriented to person and place. She thinks the year is 1991. Speech is clear. Motor, muscle tone and bulk are normal. Strength 5/5 bilaterally. Sensory intact. Cerebellar, finger-nose testing intact. Gait, deferred due to patient's safety reason. Cranial nerves II through XII intact. DATA REVIEWED: I reviewed the labs and head CT, which showed enlarged ventricles. Lab results: WBC 13.2 thou/uL (4.8-10.8) H 07/03/20 19:13 Hgb 11.0 g/dL (12.0-16.0) L 07/03/20 19:13 Hct 34.1 % (36.0-47.0) L 07/03/20 19:13 MCV 94.8 fL (78.0-98.0) 07/03/20 19:13 Plt Count 219 thou/uL (130-400) 07/03/20 19:13 Neutrophils % 88.7 % (42.0-75.0) H 07/03/20 19:13 Sodium 140 mmol/L (136-145) 07/03/20 19:13 Potassium 4.6 mmol/L (3.5-5.1) 07/03/20 19:13 Chloride 108 mmol/L (98-107) H 07/03/20 19:13 Carbon Dioxide 19 mmol/L (23-31) L 07/03/20 19:13 BUN 25 mg/dL (9.8-20.1) H 07/03/20 19:13 Creatinine 1.72 mg/dL (0.6-1.1) H 07/03/20 19:13 Glucose 99 mg/dL (83-110) 07/03/20 19:13 Lactic Acid 1.7 mmol/L (0.5-2.2) 07/03/20 19:13 Calcium 8.9 mg/dL (7.8-10.44) 07/03/20 19:13 Total Bilirubin 0.3 mg/dL (0.2-1.2) 07/03/20 19:13 AST 24 U/L (5-34) 07/03/20 19:13 ALT 16 U/L (8-55) 07/03/20 19:13 Alkaline Phosphatase 84 U/L (40-110) 07/03/20 19:13 Creatine Kinase 52 U/L (29-168) 07/03/20 19:13 Troponin I 0.017 ng/mL (< 0.028) 07/03/20 19:13 Serum Total Protein 7.1 g/dL (6.0-8.3) 07/03/20 19:13 Albumin 3.8 g/dL (3.4-4.8) 07/03/20 19:13 Lipase 77 U/L (8-78) 07/03/20 19:13 Urine Ketones Negative mg/dL (Negative) 07/03/20 Unknown Urine Blood Negative (Negative) 07/03/20 Unknown Urine Nitrite Negative (Negative) 07/03/20 Unknown Ur Leukocyte Esterase 250 Felix/uL (Negative) A 07/03/20 Unknown Urine RBC 0-3 HPF (0-3) 07/03/20 Unknown Urine WBC 21-50 HPF (0-3) A 07/03/20 Unknown Ur Squamous Epith Cells 0-3 HPF (0-3) 07/03/20 Unknown Urine Bacteria 1+ HPF (None Seen) A 07/03/20 Unknown ASSESSMENT AND PLAN: (1) Altered mental Status Code(s): A41.9 - SEPSIS, UNSPECIFIED ORGANISM Status: Acute (2) Normal Pressure Hydrocephalus Status: Chronic (3) JESS (acute kidney injury) Code(s): N17.9 - ACUTE KIDNEY FAILURE, UNSPECIFIED Status: Acute (4) Atrial fibrillation Code(s): I48.91 - UNSPECIFIED ATRIAL FIBRILLATION Status: Acute (5) HTN (hypertension) Code(s): I10 - ESSENTIAL (PRIMARY) HYPERTENSION Status: Acute (6) HLD (hyperlipidemia) Code(s): E78.5 - HYPERLIPIDEMIA, UNSPECIFIED Status: Acute (7) UTI (urinary tract infection) Status: Acute Ms. Maria Eugenia Rodriguez is an 84-year-old female, who was consulted because of enlarged ventricles on head CT to rule out normal-pressure hydrocephalus. I had a long discussion with the daughter and according to her, she has abnormal enlargement of the ventricles since and has ongoing symptoms of memory issues and falls. She has been followed by Dr. Ceron, who did the whole evaluation with a high-volume tap and did not feel the need to treat normal-pressure hydrocephalus in 2013. The patient and daughter were made aware that the condition needs to be re-evaluated once acute issues are resolved. The daughter will make an appointment with Dr. Ceron to re-evaluate normal-pressure hydrocephalus with high-volume tap and further management suggested by Dr. Ceron. The patient has also been followed by Dr. Ceron for memory issue and is on Aricept and has undergone extensive testing. Altered mental status on initial presentation seems to be multifactorial most likely secondary to UTI. Since the initial urinalysis was consistent with UTI and fever and leukocytosis, the patient is already on antibiotic. Her mental status is improved per daughter. We will consider MRI of the brain to rule out acute intracranial process and EEG to rule out cortical irritability. Neuro checks every 4 hours. Continue home medications. Continue medical management per primary team. The plan discussed in detail with the patient, patient's daughter at bedside, nursing staff and the primary attending Dr. Escobedo. Job ID: [id number] [facility]
--- NOTE | 2020-07-07 14:24 | MRI ---
EXAM: Brain MRI Without contrast: HISTORY: Seizure frequent falls abnormal gait COMPARISON: CT, 07/03/2020 FINDINGS: Multiplanar multisequence MRI examination of the brain is performed. Prominent dilatation of the lateral and third ventricles relative to cortical sulci concerning for no rmal pressure hydrocephalus. No evidence for intra or extra-axial hemorrhage. No evidence for abnormal restricted diffusion. No evidence for acute infarct. Normal-appearing flow voids are noted. The extracranial soft tissues and calvarial marrow signal appear within normal limits. Ethmoid sinus mucosal disease. Bilateral atrophy and chronic white matter ischemic change. IMPRESSION: Markedly dilated lateral and third ventricle concerning for normal pressure hydrocephalus. No mass or bleed.
--- NOTE | 2020-07-07 15:03 | PDOC.EEG ---
Neurology EEG Report - Report Report: This EEG was performed using 24 channel [employer] video EEG machine with 24 disc chan ctrodes. This was an extended 2 hours 6 minutes of inpatient video EEG recording. Digital analysis of the EEG was done for spike and seizure detection which revealed no abnormalities. Background: There is a nonsustained posterior background rhythm of 9-10 Hz. Hyperventilation: Not performed. Photic Stimulation: No significant response. Sleep: No stage change is observed. EEG Diagnosis: Occasional irregular theta activity seen during the reording. Nonsustained Posterior background rhythm. Clinical Interpretation: This EEG is consistent with mild generalized nonspecific cerebral dysfunction.
--- NOTE | 2020-07-07 17:40 | PDOC.HOSPP ---
- Subjective Encounter Date: 07/07/20 Encounter Time: 15:00 Subjective: F/u : pneumonia The patient has been weaned off oxygen and states she only wore it last night. She has no significant cough and she denies shortness of breath. Patient states she is exhausted from all the testing NPH - She had MRI of her brain to evaluate NPH and EEG so didn't get to ambulate much today . Per daughter, patient has seen a neurologist in the past for NPH and has had lumbar punctures and was told that she didn't quite meet the diagnosis because the LP did not improve her symptoms. - Objective Vital Signs & Weight: Vital Signs (12 hours) Temp Pulse Resp BP Pulse Ox 07/07/20 16:47 98.6 F 71 18 170/80 H 95 07/07/20 14:55 89 16 90 L 07/07/20 12:00 98.3 F 67 18 150/80 H 92 L 07/07/20 08:10 95 07/07/20 08:00 98.5 F 95 18 140/84 95 07/07/20 07:14 85 16 95 07/07/20 06:54 90 19 129/78 95 07/07/20 06:30 140 H 19 143/83 H 93 L 07/07/20 05:45 139 H Weight Weight 167 lb 9.6 oz I&O: 07/06/20 07/07/20 07/08/20 06:59 06:59 06:59 Intake Total 680 650 Balance 680 650 Result Diagrams: 07/07/20 05:39 07/07/20 05:39 Hospitalist ROS - Review of Systems Constitutional: denies: fever, chills - Medication Medications: Active Medications Generic Name Dose Route Start Last Admin Trade Name Freq PRN Reason Stop Dose Admin Acetaminophen 650 mg 07/04/20 00:56 07/05/20 22:57 Acetaminophen 325 Mg Tab PO 650 mg Q4H PRN Administration Headache/Fever/Mild Pain (1-3) Albuterol/Ipratropium 3 ml 07/05/20 16:17 07/06/20 09:18 Ipratropium/Albuterol Sulfate 3 Ml Neb NEB 3 ml [id number] PRN Administration SOB &/or Wheezing Albuterol/Ipratropium 3 ml 07/05/20 18:30 07/07/20 14:55 Ipratropium/Albuterol Sulfate 3 Ml Neb NEB 3 ml [id number] NACHO Administration Aspirin 81 mg 07/05/20 09:00 07/07/20 09:20 Aspirin 81 Mg Enteric Coated Tablet PO 81 mg DAILY NACHO Administration Donepezil HCl 10 mg 07/05/20 21:00 07/06/20 20:22 Donepezil Hcl 10 Mg Tab PO 10 mg HS NACHO Administration Escitalopram Oxalate 20 mg 07/05/20 09:00 07/07/20 09:20 Escitalopram Oxalate 20 Mg Tablet PO 20 mg DAILY NACHO Administration Piperacillin Sod/Tazobactam 100 mls @ 200 mls/hr 07/05/20 08:00 07/07/20 09:18 Sod 4.5 gm/ Sodium Chloride IVPB 100 mls Q8H NACHO Administration Doxycycline Hyclate 100 mg/ 100 mls @ 100 mls/hr 07/05/20 09:00 07/07/20 09:20 Sodium Chloride IVPB 100 mls Q12HR NACHO Administration Levothyroxine Sodium 88 mcg 07/06/20 06:00 07/07/20 05:36 Levothyroxine Sodium 88 Mcg Tab PO 88 mcg 0600 NACHO Administration Metoprolol Succinate 25 mg 07/05/20 09:00 07/07/20 09:39 Metoprolol Succinate Xl 25 Mg Tab PO Not Given DAILY NACHO Ondansetron HCl 4 mg 07/04/20 00:56 07/05/20 04:24 Ondansetron Pf 4 Mg/2 Ml Vial IVP 4 mg Q6H PRN Administration Nausea/Vomiting Quetiapine Fumarate 50 mg 07/05/20 21:00 07/06/20 20:21 Quetiapine Fumarate 25 Mg Tab PO 50 mg HS NACHO Administration Rosuvastatin Calcium 10 mg 07/05/20 09:00 07/07/20 09:20 Rosuvastatin 10 Mg Tab PO 10 mg DAILY NACHO Administration Sodium Chloride 10 ml 07/04/20 21:00 07/07/20 09:20 Flush - Normal Saline 10 Ml Syringe IVF 10 ml Q12HR NACHO Administration - Exam General Appearance: NAD, awake alert Eye: PERRL, anicteric sclera ENT: normocephalic atraumatic, no oropharyngeal lesions Neck: supple, symmetric, no JVD Heart: RRR, no murmur, no gallops, no rubs Respiratory: CTAB, no wheezes, no rales, no ronchi Gastrointestinal: soft, non-tender, non-distended, normal bowel sounds Extremities: no cyanosis, no clubbing, no edema Skin: normal turgor, no lesions, no rashes Hosp A/P - Plan CT brain: dilation of lateral ventricles and third ventricle suggesting NPH. Left scalp contusion Chest x ray: perihilar interstitial prominence CT abdomen: no acute process Chest X ray 07/05: new right lower lobe infiltrate MRI brain 07/07: markedly dilated lateral and third ventricle concerning for NPH This is an 84 year old female who presented with altered mental status and daughter was concerned about her having a stroke. Acute hypoxic respiratory failure secondary to sepsis from Pneumonia - presented with fever. She had tachycardia and leukocytosis and new right lower lobe infiltrate. WBC is down to 11. Will switch to oral augmentin and doxycycline today - check ambulatory oxygen sat tomorrow , likely d/c tomorrow Dysphagia - continue pureed diet as tolerated NPH - follows with a neurologist as an outpatient. MRI confirms NPH. EEG showed generalized cerebral dysfunction , no seizures. Continue outpatient follow up per neurology Acute encephalopathy - likely secondary to pneumonia - seems to be oriented. MRI brain shows no stroke. EEG no seizures. Possible NPH - will place neurology consult in am . Is needing a wakler Dementia - continue aricept Hypertension - continue metoprolol. Will stop IV fluids Hypothyroidism - continue levothyroxine
[2020-07-07] MEDS: Amoxicillin/Potassium Clav 875 MG TAB PO SCH (20:02)
[2020-07-07] MEDS: Doxycycline 100 MG CAP PO SCH (20:03)
[2020-07-07] MEDS: Donepezil HCl 10 MG TAB PO SCH (20:03)
[2020-07-08] MEDS: Levothyroxine Sodium 88 MCG TAB PO SCH (05:43)
[2020-07-08 06:51] LABS: Hemoglobin 9.1 g/dL (12.0-16.0); Mean Corpuscular Hemoglobin 29.7 pg (27.0-31.0); Mean Corpuscular Volume 95.7 fL (78.0-98.0); Mean Platelet Volume 8.3 fL (7.4-10.4); Platelet Count 215 thou/uL (130-400); RBC Distribution Width 11.8 % (11.5-14.5); Red Blood Cell (RBC) Count 3.08 mill/uL (4.20-5.40); White Blood Cell (WBC) Count 10.3 thou/uL (4.8-10.8)
[2020-07-08 07:18] LABS: Anion Gap 14 mmol/L (10-20); BUN (Urea Nitrogen) 15 mg/dL (9.8-20.1); Calc. Creatinine Clearance 39 mL/min (70-130); Calcium 8.8 mg/dL (7.8-10.44); Carbon Dioxide 17 mmol/L (23-31); Chloride 114 mmol/L (98-107); Glucose 92 mg/dL (83-110); Potassium 4.3 mmol/L (3.5-5.1); Sodium 141 mmol/L (136-145)
[2020-07-08] MEDS: Rosuvastatin 10 MG TAB PO SCH (07:56)
[2020-07-08] MEDS: Amoxicillin/Potassium Clav 875 MG TAB PO SCH (07:57)
[2020-07-08] MEDS: Escitalopram Oxalate 20 mg Tablet PO SCH (07:57)
[2020-07-08] MEDS: Aspirin 81 mg Enteric Coated Tablet PO SCH (07:57)
[2020-07-08] MEDS: Doxycycline 100 MG CAP PO SCH (08:02)
[2020-07-08] MEDS ORDERED: Amlodipine 5 MG TAB PO SCH ×2 (09:00→12:45)
[2020-07-08 09:11] VITALS: TEMP 98.1
[2020-07-08] MEDS ORDERED: Labetalol HCl 100 MG/20 ML VIAL SLOW IVP PRN (12:39)
[2020-07-08 13:24] VITALS: BP 185/81
--- NOTE | 2020-07-08 18:24 | PDOC.DS.DS ---
Provider - Provider Date of Admission: 07/03/20 22:02 Date of Discharge: 07/08/20 Admitting Provider: Rick Balderas Primary Care Physician: LANA FLORES MD Course - Hospital Course Hospital Course: Discharge Diagnoses: 1. Acute hypoxic respiratory failure secondary to sepsis from pneumonia 2. Dysphagia 3. NPH 4. Acute encephalopathy secondary to pneumonia 5. NPH 6. Dementia Brief HPI: This is an 84-year-old female who presented to her [facility] when she had generalized weakness and was unable to get out of her bed. She was febrile to 101.8 she also had agitation. Her UA showed a possible UTI. Chest x-ray showed perihilar interstitial prominence with no pneumonia or edema. CT scan of the head showed no stroke. Patient was given IV antibiotics and admitted for further work-up Hospital Course: Acute hypoxic respiratory failure secondary to sepsis from Pneumonia: Patient met sepsis criteria with fever and white blood cell count of 13.2. She was sta rted on Zosyn and doxycycline on 07/05. Her white blood cell count improved with this. Blood cultures grew 1/2 gram variable cocci. Repeat blood cultures were negative. She did require 2 L of oxygen while in the hospital. She was weaned off oxygen at the time of discharge. Her white blood cell count down to 10.3. She will be discharged with Augmentin and doxycycline for 4 more days. She should have repeat chest x-ray in 6 weeks Dysphagia: Patient was seen by speech therapy. Recommended a nectar thick liquid diet at discharge. They also recommended that she have outpatient modified barium swallow and home health speech therapy. Outpatient MBSS form was signed on discharge. NPH: Patient incidentally had dilated ventricles consistent with NPH on CT scan of the head. Neurology was consulted. MRI of the brain confirmed NPH. EEG s howed generalized cerebral dysfunction no seizures. Patient will follow up with her neurologist as an outpatient Acute encephalopathy - likely secondary to pneumonia. This resolved at the time of discharge and the patient was oriented times three. Hypertension: The patient had a blood pressure of 200 systolic in the hospital. Manual blood pressure was slightly more accurate with a systolic of 180. The patient was prescribed amlodipine 10 mg with improvement in her blood pressure to 160. She was discharged with amlodipine 10 mg daily on discharge. She should follow-up with her PCP in a week and have this rechecked. She will continue her oral metoprolol as well Physical deconditioning: Patient was seen by physical therapy. The patient had a rolling walker at home but did much better with a standard walker while in the hospital. Family requested that the patient resume home health services with [facility]. Case management was consulted and this was set up on discharge Pertinent Studies: CT brain: dilation of lateral ventricles and third ventricle suggesting NPH. Left scalp contusion Chest x ray: perihilar interstitial prominence CT abdomen: no acute process Chest X ray 07/05: new right lower lobe infiltrate MRI brain 07/07: markedly dilated lateral and third ventricle concerning for NPH Resuscitation Status: 07/04/20 00:56 Resuscitation Status Routine Resuscitation Status: FULL: Full Resuscitation - Labs Lab Results: 07/08/20 06:39 07/08/20 06:39 Abnormal Lab Results - Last 48 hrs 07/07/20 05:39: Potassium 3.3 L, Chloride 113 H, Carbon Dioxide 18 L, Creatinine 1.47 H 07/07/20 05:39: WBC 11.4 H, RBC 3.00 L, Hgb 9.2 L, Hct 28.7 L 07/08/20 06:39: Chloride 114 H, Carbon Dioxide 17 L, Creatinine 1.25 H 07/08/20 06:39: RBC 3.08 L, Hgb 9.1 L, Hct 29.5 L, MCHC 31.0 L Microbiology - Entire Visit 07/06/20 18:55 Venous blood - Left Hand Blood Culture - Preliminary NO GROWTH AT 48 HOURS 07/06/20 18:38 Venous blood - Left Arm Blood Culture - Preliminary NO GROWTH AT 48 HOURS 07/03/20 20:18 Venous blood - Right Arm Blood Culture - Preliminary Gram Variable Cocci 07/03/20 19:13 Venous blood - Right Arm Blood Culture - Preliminary NO GROWTH AT 48 HOURS 07/05/20 12:07 Stool C. difficile GDH Antigen & Toxins - Final 07/03/20 Unknown Urine Straight Catheter Urine Culture - Final NO GROWTH AT 36 HOURS - Physical Exam Vitals: Vital Signs (12 hours) Temp Pulse Resp BP BP Pulse Ox 07/08/20 14:15 74 18 90 L 07/08/20 13:20 78 185/81 H 07/08/20 10:40 78 202/88 H 07/08/20 09:10 98.1 F 78 18 172/84 H 94 L Weight Weight 167 lb 9.6 oz Physical Exam: The patient was seen and examined on the day of discharge. General: patient is alert, awake, oriented times three CV: RRR, no murmurs, rubs, gallops Lungs: CTAB Abdomen: +BS, soft, nontender, nondistended, extremities Extremities: no edema Problem - Time spent with Patient (mins): 35 Plan - Discharge Medications Prescriptions: Amoxicillin/Potassium Clav [Augmentin] 875 mg PO Q12HR #8 tab Amlodipine [Norvasc] 10 mg PO DAILY #30 tab Doxycycline [Vibramycin] 100 mg PO BID #7 cap Home Medications: Medication Instructions Recorded Confirmed Type Aspirin [Ecotrin Low Strength] 81 mg PO DAILY 07/04/20 07/04/20 History Donepezil HCl [Aricept] 10 mg PO HS 07/04/20 07/04/20 History Escitalopram Oxalate [Lexapro] 20 mg PO DAILY 07/04/20 07/04/20 History Levothyroxine Sodium 88 mcg PO DAILY 07/04/20 07/04/20 History [Levothyroxine] Metoprolol Succinate [Toprol XL] 25 mg PO DAILY 07/04/20 07/04/20 History QUEtiapine Fumarate [Seroquel] 50 mg PO HS 07/04/20 07/04/20 History Rosuvastatin Calcium 10 mg PO DAILY 07/04/20 07/04/20 History Hydrocortisone [Proctosol-HC 2.5% 1 applic TOP PRN PRN 07/05/20 07/05/20 History Cream] Amlodipine [Norvasc] 10 mg PO DAILY #30 tab 07/08/20 Rx Amoxicillin/Potassium Clav 875 mg PO Q12HR #8 tab 07/08/20 Rx [Augmentin] Doxycycline [Vibramycin] 100 mg PO BID #7 cap 07/08/20 Rx Allergies: Iodinated Contrast Media Allergy (Verified 07/04/20 08:41) - Discharge Instructions Activity:: Activity as Tolerated Nourishment:: Heart Healthy Diet Therapies:: Physical Therapy - Follow up Plan Referrals: [facility] [Outside] LANA FLORES MD [Primary Care Provider] - 7 Days Disposition: HOME Quality - Care Measures CORE MEASURES:: N/A
--- NOTE | 2020-07-09 10:34 | EKG ---
Test Reason : Blood Pressure : / mmHG Vent. Rate : 132 BPM Atrial Rate : 133 BPM P-R Int : 000 ms QRS Dur : 138 ms QT Int : 350 ms P-R-T Axes : 000 031 210 degrees QTc Int : 518 ms Atrial fibrillation with rapid ventricular response Left bundle branch block Abnormal ECG When compared with ECG of 03-JUL-2020 18:54, (Unconfirmed) Previous ECG has undetermined rhythm, needs review Confirmed by Robe IVEY ([id number]) on 07/09/2020 10:33:46 AM Referred By: QUAN Confirmed By:Robe IVEY
== END 2020-07-08 18:28 | disposition home health service (06) | DRG 871 ==
LOC: ERS 18:10 → 2SE 22:02 → T4-A 07-05 21:12
PROVIDERS: ADMIT Internal Medicine; ATTEND Internal Medicine
DX: A41.9 Sepsis, unspecified organism (principal); J18.9 Pneumonia, unspecified organism; J96.01 Acute respiratory failure with hypoxia; G93.41 Metabolic encephalopathy; G91.2 (Idiopathic) normal pressure hydrocephalus; N39.0 Urinary tract infection, site not specified; N17.9 Acute kidney failure, unspecified; F03.90 Unspecified dementia, unspecified severity, without behavioral disturbance, psychotic disturbance, mood disturbance, and anxiety; R13.10 Dysphagia, unspecified; G93.89 Other specified disorders of brain; I48.91 Unspecified atrial fibrillation; E78.5 Hyperlipidemia, unspecified; I12.9 Hypertensive chronic kidney disease with stage 1 through stage 4 chronic kidney disease, or unspecified chronic kidney disease; N18.9 Chronic kidney disease, unspecified; E03.9 Hypothyroidism, unspecified; E87.6 Hypokalemia; Z79.890 Hormone replacement therapy; Z79.899 Other long term (current) drug therapy; Z91.041 Radiographic dye allergy status
CPT/HCPCS: 36415; 36416; 51701; 70450; 70551; 71045; 74177; 80048; 80053; 80306; 80307; 81003; 81015; 82550; 83605; 83690; 83735; 84443; 84484; 85007; 85025; 85027; 85610; 85730; 87040; 87086; 87149; 87324; 87449; 93005; 93010; 94640; 94760; 95712; 95816; 95819; 95957; 96365; 96375; J0696; J1200; J2060; J2405; J2543; J2920; J3490; J7620; Q9967; S0028